=== PATIENT | male | born 1955 | race Caucasian/White ===

== ENCOUNTER 2017-01-27 20:28 | Emergency (ER) | payer SELFPAY ==
[~2017-01-27] VITALS: Ht 185.4 cm; Wt 107.0 kg
[2017-01-27] MEDS ORDERED: BACITRACIN ZINC OINT UDPKT TOP ONE (23:15)
[2017-01-28 00:48] VITALS: BP 158/67
== END 2017-01-28 01:05 | disposition home or self-care (01) ==
LOC: ER 21:43
DX: L97.229 Non-pressure chronic ulcer of left calf with unspecified severity (principal); L98.499 Non-pressure chronic ulcer of skin of other sites with unspecified severity; I10 Essential (primary) hypertension
CPT/HCPCS: 99283; Z7610